=== PATIENT | male | born 1950 | race Caucasian/White ===

== ENCOUNTER → 2023-01-14 | Outpatient (CLI) | payer OTHER | END | disposition home or self-care (01) | LOC: RAH 13:29 | PROVIDERS: ATTEND Internal Medicine | DX: I35.8 Other nonrheumatic aortic valve disorders (principal); I49.3 Ventricular premature depolarization | CPT/HCPCS: 93306 ==

== ENCOUNTER → 2023-02-25 | Outpatient (CLI) | payer OTHER ==
[~2023-02-25] MED LIST: IOHEXOL 350 MG/ML 100ML INFUS..BTL IV ONE; METOPROLOL TARTRATE 1 MG/ML 5ML VIAL IV ONE
== END | disposition home or self-care (01) ==
LOC: RAH 08:58
PROVIDERS: ATTEND Internal Medicine Cardiovascular Disease
DX: K44.9 Diaphragmatic hernia without obstruction or gangrene (principal); I25.119 Atherosclerotic heart disease of native coronary artery with unspecified angina pectoris; R06.02 Shortness of breath
CPT/HCPCS: 75574; J3490; Q9967 ×2

== ENCOUNTER → 2024-10-27 | Outpatient (CLI) | payer OTHER ==
[~2024-10-27] MED LIST changes: +AMLO-257 PO; +ASPI-1197 PO; +CARV6.25 PO; +DRONABINOL 2.5 MG PO; +FURO-152 PO; +HYDR12.54 PO; +ISOS30TA92 PO; -METOPROLOL TARTRATE 1 MG/ML 5ML VIAL IV ONE; +OLME40TA18 PO; +TIOT18CA3 IH; +amlodipine PO
--- NOTE | 2024-10-27 12:16 | HMCIMG ---
CT ABDOMEN/PELVIS W/CONTRAST REASON: DIVERTICULOSIS COMPARISON: 10/07/2024 TECHNIQUE: Images are obtained from lung bases through the symphysis pubis following oral and IV contrast, 100 cc Omnipaque 350. FINDINGS: Lung bases are clear. There are no focal liver lesions. There are normal-appearing kidneys.. Spleen and pancreas appear unremarkable. The gallbladder appears normal as well. There is a focal fluid collection along the right lateral aspect of the liver. There is significant decrease in size of the collection compared to previous exam, but there is persistent fluid present. Fluid collection measures 1.5 cm in thickness and 11.4 cm anterior to posterior and 4.6 cm superior to inferior. The pigtail catheter is within the fluid collection but has been pulled back somewhat to the anterior portion of the collection. Clinical correlation is recommended. If there is decreasing output and then catheter repositioning or upsizing may BE considered. There is moderate sigmoid diverticulosis without evidence of diverticulitis. Bowel loops appear otherwise unremarkable. The appendix was not separately identified. There is no evidence of free fluid or intraperitoneal air. There are no focal fluid collections. Aorta and retroperitoneum appear normal as do pelvic soft tissue structures. The anterior abdominal wall is intact. Osseous structures appear unremarkable. IMPRESSION: 1. Fluid collection right lateral aspect of the liver is significantly decreased in size but there is persistent fluid present, 1.5 x 4.6 x 11.4 cm collection. 2. Pigtail catheter is within the collection, but is present anteriorly in the nondependent location, clinical correlation recommended, if there is decreased are no fluid about blood from the catheter then catheter repositioning or upsizing may be indicated. 3. Otherwise unremarkable postcontrast CT abdomen and pelvis. CT was performed with one or more following dose reduction techniques: automated exposure control, adjustment of the mA and kv according to patient's size, or use of a iterative reconstruction technique.
== END | disposition home or self-care (01) ==
LOC: RAH 08:43
PROVIDERS: ATTEND Internal Medicine
DX: K57.30 Diverticulosis of large intestine without perforation or abscess without bleeding (principal)
CPT/HCPCS: 74177; Q9967

== ENCOUNTER 2025-02-15 05:39 | Day surgery (SDC) | payer OTHER ==
[2025-02-13 08:28] LABS: BASOPHILS # (AUTO) 0.05 K/uL (0.00-0.20); BASOPHILS % (AUTO) 0.6 % (0.0-5.0); EOSINOPHILS # (AUTO) 0.25 K/uL (0.00-0.70); EOSINOPHILS % (AUTO) 3.2 % (0.0-8.0); HEMATOCRIT 40.1 % (42-54); IMMATURE GRANULOCYTE ABSOLUTE 0.02 K/uL (0-1); LYMPHOCYTES # (AUTO) 2.7 K/uL (1.0-4.8); LYMPHOCYTES % (AUTO) 34.5 % (21.0-51.0); MEAN CORPUSCULAR HGB CONC 30.7 g/dL (32.0-36.0); MEAN CORPUSCULAR VOLUME 88.1 fL (79-99); MONOCYTES # (AUTO) 0.8 K/uL (0.1-1.0); MONOCYTES % (AUTO) 10.2 % (3.0-13.0); NEUTROPHILS % (AUTO) 51.2 % (40.0-77.0); PLATELET COUNT (AUTO) 256 K/uL (130-400); RED BLOOD CELL COUNT(AUTO) 4.55 MIL/uL (4.50-6.20); RED CELL DISTRIBUTION WIDTH 15.4 % (11.0-15.5); WHITE BLOOD COUNT (AUTO) 7.9 K/uL (4.8-10.8)
[2025-02-13 08:32] VITALS: BP 136/48; PULSE 58; RESP 17; TEMP 97.7
[2025-02-13 08:35] LABS: CREATININE 1.3 mg/dL (0.5-1.3); POTASSIUM 4.6 mmol/L (3.5-5.1)
[2025-02-13 08:39] LABS: INR 0.99 (0.85-1.15); PROTHROMBIN TIME 10.5 SEC (9.6-11.6)
[2025-02-13 08:40] LABS: PARTIAL THROMBOPLASTIN TIME 28.2 SEC (26.3-35.5)
--- NOTE | 2025-02-13 08:46 | EKG ---
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
[2025-02-15] VITALS (9 sets, daily range): BP systolic 105–132; BP diastolic 46–64; PULSE 67–84; RESP 15–18; TEMP 97.4–98.1
[~2025-02-15] VITALS: Ht 172.7 cm; Wt 72.4 kg
[~2025-02-15 05:39] MED LIST changes: +ALBU18HF7 IH; -AMLO-257 PO; -ASPI-1197 PO; +ASPI-1443 PO; +BUDE10.7 IH; +CARV12.511 PO; -CARV6.25 PO; -DRONABINOL 2.5 MG PO; +FERS325 PO; -FURO-152 PO; +FURO40TA5 PO; -HYDR12.54 PO; -IOHEXOL 350 MG/ML 100ML INFUS..BTL IV ONE; +LOSA50TA64 PO; +NITR0.4T50 SL; -OLME40TA18 PO; +PANT40TA54 PO; +SPIR25TA6 PO; -TIOT18CA3 IH; -amlodipine PO
[2025-02-15] MEDS ORDERED: HEParin 10,000 UNIT/10ML (1,000 UNIT/ML) VIAL ONE (07:08)
[2025-02-15] MEDS ORDERED: HEParin-NS 1,000 UNIT/500 ML 1,000 ML IV ONE (07:08)
[2025-02-15] MEDS ORDERED: NITROGLYCERIN 50MG VIAL ONE (07:08)
[2025-02-15] MEDS ORDERED: LIDOCAINE HCL 400MG/20ML VIAL ONE (07:08)
[2025-02-15] MEDS ORDERED: IOHEXOL 350 MG/ML 100ML INFUS..BTL IV ONE (07:08)
[2025-02-15] MEDS ORDERED: VERAPAMIL HCL 2.5 MG/ML VIAL ONE (07:13)
[2025-02-15] MEDS: 0.9%NACL 1000ML 1,000 ML IV SCH (07:24)
[2025-02-15] MEDS ORDERED: MIDAZOLAM HCL 1 MG/ML 2ML VIAL ONE (07:33)
[2025-02-15] MEDS ORDERED: FENTanyl CITRate PF 50 MCG/1 ML 2ML VIAL ONE (07:33)
[2025-02-15] MEDS ORDERED: IOHEXOL-350 50ML VIAL IV ONE (07:54)
[2025-02-15] MEDS ORDERED: 0.9%NACL 1000ML 1,000 ML IV SCH (09:00)
--- NOTE | 2025-02-15 09:30 | CCATH ---
PROCEDURES: Left heart catheterization, left and right coronary arteriography, left ventricular angiography. PRIMARY TOWING PILOT: Dr. Medina INDICATIONS: This 74-year-old man presents with dyspnea on exertion. 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 However, he did have a CT coronary angiogram, which reported a 70% stenosis in the proximal LAD. PROCEDURE IN DETAIL: After informed consent and premedication, the patient was brought to the cardiac catheterization laboratory in a fasting state where the right femoral artery was accessed utilizing a micropuncture technique. The above-described procedures were performed. Complications none. Left main: The left main contains a 20-30% stenosis at its origin. No other disease in the LAD in the left main. LAD: There is calcification in the wall of the proximal LAD. The LAD contains a 20% stenosis proximally, but no other significant disease. Circumflex: The nondominant circumflex contains a very small obtuse marginal branch, which is completely occluded. No other significant disease in the circumflex. Right coronary artery: The dominant right coronary artery contains a 20-30% stenosis in its mid portion. LEFT VENTRICULAR ANGIOGRAPHY: The resting left ventricular end-diastolic pressure is 16 mmHg. There is no aortic stenosis and no obvious mitral regurgitation. There are no wall motion abnormalities. The ejection fraction is greater than 70%. In performing the right femoral artery angiogram in preparation for closure, there is mild disease in the right common femoral artery and also an approximate 60% stenosis in the external iliac artery on the right. The arteriotomy was closed with Mynx. MEDICATIONS: The patient received Versed 1 mg IV, fentanyl 25 mcg IV, heparin 500 units intravenously. CASE TIMES: Case start 743. Case end 804. Complications: None. IMPRESSION: This patient has no significant coronary artery disease. The ejection fraction is normal. There is mild peripheral artery disease. PLAN: The patient will continue to be treated medically. The patient will have followup with Dr. Medina and also followup with me in 2 weeks. TID: [id number] RECEIPT: [id number]
--- NOTE | 2025-02-15 13:06 | NUR ---
Full and complete discharge instructions given to Patient and Family both verbally and in writing. Explained CARDIAC ANGIOGRAM procedure precautions and follow up. Femoral site clean and dry with no evidence of bruising, bleeding or hematoma. Patient ambulated in room independently. Voided to urinal. All questions answered. PIV removed with catheter tip intact. Home with Family W/C to POV.
== END 2025-02-15 13:07 | disposition home or self-care (01) ==
LOC: DAH 05:39
PROVIDERS: ATTEND Internal Medicine Cardiovascular Disease
DX: R93.1 Abnormal findings on diagnostic imaging of heart and coronary circulation (principal); I25.118 Atherosclerotic heart disease of native coronary artery with other forms of angina pectoris; I70.8 Atherosclerosis of other arteries; I10 Essential (primary) hypertension; R94.39 Abnormal result of other cardiovascular function study; E78.00 Pure hypercholesterolemia, unspecified; J44.9 Chronic obstructive pulmonary disease, unspecified; Z99.81 Dependence on supplemental oxygen; Z79.899 Other long term (current) drug therapy; Z79.82 Long term (current) use of aspirin; Z87.891 Personal history of nicotine dependence; Z79.01 Long term (current) use of anticoagulants
CPT/HCPCS: 80048; 85025; 85610; 85730; 36415; 93005; 93458; C1894 ×2; C1760; Q9965; J3010; J3490 ×2; J1644 ×2; J2250; Q9967 ×2; A4215; A4222; A4221; A4663; A4216; A4606; A4223 ×3; 96360; 96361; 99156; 99157